=== PATIENT | female | born 1990 | race Caucasian/White ===

== ENCOUNTER → 2016-08-28 | Outpatient (CLI) | payer OTHER ==
[~2016-08-28] MED LIST: ONDA4TAB10 SL
== END | disposition home or self-care (01) ==
LOC: C.PAPS 13:42
PROVIDERS: ATTEND Obstetrics & Gynecology
DX: Z12.4 Encounter for screening for malignant neoplasm of cervix (principal)

== ENCOUNTER 2022-02-02 07:49 | Inpatient (IN) ==
[2022-02-02] MEDS ORDERED: OXYTOCIN 30 UNITS/500 ML BAG IV PRN ×2 (07:54)
--- NOTE | 2022-02-02 08:04 | History & Physical Report ---
Date of Service February 02, 2022 Assessment & Plan (1) Club foot of fetus affecting antepartum care of mother: (2) Encounter for supervision of normal intrauterine in primigravida, antepartum: (3) Term : Plan: 31yo at 40w4d GA. presents for late term IOL. 1. Fetus: Cat 1 2. Labor: Farley in place. Will start oxytocin and AROM when appropriate 3. GBS negative 4. Vitals: Normal Admission and Anticipated Discharge Date Admission Date: February 02, 2022 History of Present Illness Primary Care Provider: DAVIN Winslow 31yo at 40w4d GA. presents for late term IOL. complicated by: Left Club Foot -MFM referral (10/12/21 ) --confirms club foot, offered genetic testing/declined --rec echo- Normal --32 wks growth u/s ( to be done at [facility])- EFW 49% Rh Negative Rhogam given 11/10/21 - [place] [facility] Labs: Blood Type O Negative 06/28/21 Antibody Screen NEGATIVE 11/10/21 Hemoglobin 11.1 g/dL (12.0-16.0) L 11/10/21 Hematocrit 31.9 % (37-47) L 11/10/21 Mean Corpuscular Volume 89.5 fL (80-100) 06/28/21 Platelet Count 300 K/uL (130-400) 06/28/21 F Rubella IgG Antibody Immune (Immune) 06/28/21 Rapid Plasma Reagin Nonreactive (Nonreactive) 06/28/21 Hepatitis B Surface Antigen Neg (Neg) 06/28/21 Hepatitis C Antibody Neg (Neg) 06/28/21 HIV (1&2) Ab and P24 Ag, 4th Gener Neg (Neg) 06/28/21 Glucose 1 Hour 50 gm Load 149 mg/dl (70-130) H 11/10/21 OB Optional Labs: Chlamydia trachomatis RNA NOT DETECTED (NOT DETECTED) 06/28/21 Neisseria gonorrhoeae RNA NOT DETECTED (NOT DETECTED) 06/28/21 Labs Reviewed: Quad screen-negative--mln Allergies Allergy/AdvReac Type Severity Reaction Status Date / Time No Known Allergies Allergy Mild Verified 02/01/22 09:11 Home Medications Medication Instructions Recorded Confirmed Type ondansetron 4 mg disintegrating 4 mg PO Q4H #20 tab 08/17/21 02/02/22 Rx tablet Pre-[place] Multivitamins/Minerals 1 pill PO 02/02/22 History Patient History Medical History (Updated 02/02/22 @ 08:35 by Dontae Woods MD) Cervicalgia Club foot of fetus affecting antepartum care of mother Personal history of urinary tract infection Skin rash Varicella vaccination Surgical History (Updated 06/19/21 @ 11:19 by Misa Parker, RN) H/O wisdom tooth extraction No history of previous surgery Family History Father Myocardial infarction Denies family history of Ovarian cancer Prostate cancer Breast cancer Colorectal cancer Social History (Updated 06/19/21 @ 11:09 by Misa Parker RN) Smoking Status: Never smoker Second Hand Exposure: No; Hx Alcohol Use: No Hx Substance Use: No Preferred Language: Bermudian Communication Ability: Effective Visual Impairment: No Limitations Hearing Ability: Normal Brick Paver Required: No Beliefs That Will Affect Care: None marital status: marital status details: Anson Hernandez (32) [phone] Current Living Situation: Spouse Current Living Situation Comment: 2 dogs current occupational status: employed current occupation: [employer] Other Information That Helps Us Care for You: No Feels Safe at Home: Yes Safety Concerns: Feels Safe At This Time caffeine: Yes Dental Care, Regularly: Yes Physical Activity Frequency: 3-4 Times per Week Seatbelt Use: always Sunscreen Use: Yes Assistive Devices: None Physical Exam Genitourinary: normal external appearance Cervical Farley in place from last night. Coding Level of Care Code None Diagnoses Club foot of fetus affecting antepartum care of mother O35.8XX0 Encounter for supervision of normal intrauterine in primigravida, antepartum Z34.00 Term Z34.90
[2022-02-02 08:32] LABS: Hemoglobin 11.6 g/dl (12.0-16.0); Mean Corpuscular Hemoglobin 30.8 pg (25.0-34.0); Mean Corpuscular Hgb Conc 34.1 g/dL (32.0-36.0); Mean Corpuscular Volume 90.2 fL (80.0-100.0); Mean Platelet Volume 12.8 fL (9.4-12.3); Platelet Count 153 K/uL (130-400); RDW Coefficient of Variation 13.2 % (11.5-14.5); RDW Standard Deviation 43.6 fL (36.4-46.3); Red Blood Count 3.77 M/uL (3.93-5.22)
[2022-02-02] MEDS: LACTATED RINGER'S 1,000 ML IV PRN ×3 (08:49→18:35)
--- NOTE | 2022-02-02 12:16 | Labor Progress Brief Note ---
Date of Service February 02, 2022 Subjective Tolerating contractions. Assessment & Plan (1) Encounter for induction of labor: Plan: Pitocin, AROM with exam, now interested in epidural. Admission and Anticipated Discharge Date Admission Date: February 02, 2022 Physical Exam Genitourinary: Farley removed with a gentle tug. 5/50/-2 ROM occurred with touch of membranes during exam FHT Cat 1 [place] q2-3m Pit @ 11 Results & Data ([facility]) Vital Signs (Past 12 Hours) Vital Signs Temp Pulse Resp BP 02/02/22 12:07 86 133/80 02/02/22 12:06 97.9 F 18 02/02/22 11:08 79 111/69 02/02/22 10:05 80 118/63 02/02/22 07:58 97.9 F 78 18 123/71 Coding Level of Care Code None Diagnoses Encounter for induction of labor Z34.90
[2022-02-02] MEDS ORDERED: SODIUM CHLORIDE 0.9% INJ 10 ML VIAL ONE (12:36)
[2022-02-02] MEDS ORDERED: fentaNYL citrate 100 MCG/2 ML VIAL ONE (12:36)
[2022-02-02] MEDS ORDERED: ePHEDrine sulfate 50 MG/ML AMP ONE (12:36)
[2022-02-02] MEDS ORDERED: LIDOCAINE 2%/EPINEPHRINE 1:200,000 20 ML SDV ONE (12:37)
[2022-02-02] MEDS ORDERED: BUPIVACAINE 0.25% 30 ML VIAL ONE (12:37)
[2022-02-02] MEDS ORDERED: fentaNYL 2MCG/ML ROPIVACAINE 1.25MG/ML 100 ML BAG EPI ONE (12:37)
[2022-02-02] MEDS ORDERED: NALOXONE HCL 1 MG in SODIUM CHLORIDE 0.9% 1000ML 1,000 ML IV PRN (13:19)
[2022-02-02] MEDS ORDERED: NALBUPHINE HCL INJ 10 MG/ML AMP IV PRN (13:19)
[2022-02-02] MEDS ORDERED: fentaNYL 2MCG/ML ROPIVACAINE 1.25MG/ML 100 ML BAG EPI PRN (13:19)
[2022-02-02] MEDS ORDERED: NALOXONE HCL 0.4 MG/1 ML VIAL/CARP IV PRN (13:19)
[2022-02-02] MEDS ORDERED: diphenhydrAMINE 50 MG/ML VIAL IV PRN (13:19)
[2022-02-02] MEDS ORDERED: ePHEDrine sulfate 50 MG/ML AMP IV PRN (13:19)
[2022-02-02] MEDS ORDERED: PROMETHAZINE HCL 6.25 MG in SODIUM CHLORIDE 0.9% 50 ML IV PRN (13:19)
[2022-02-02] MEDS ORDERED: ONDANSETRON INJ 2 MG/ML 2 ML VIAL IV PRN (13:19)
--- NOTE | 2022-02-02 13:19 | Anesthesiology Consultation ---
Date of Service February 02, 2022 Assessment & Plan Chart Review Chart Review: Patient NOT seen in Pre Admission Testing and Acceptable Risk for Labor Epidural Consults Requested none ASA ASA2 Proposed Anesthesia Anesthesia Type: Labor Epidural Risk / Benefits Reviewed With: PT / POA / Parent / Guardian, Accepts Plan and Informed Consent Obtained History Height/Weight Height: 5 ft 8 in Weight: 100.97 kg Allergies Allergy/AdvReac Type Severity Reaction Status Date / Time No Known Allergies Allergy Mild Verified 02/01/22 09:11 Medications Home Medications Medication Instructions Recorded Confirmed Last Taken ondansetron 4 mg disintegrating 4 mg PO Q4H #20 tab 08/17/21 02/02/22 11/25/21 12:00 tablet prenat.vits,kiera,loj-fiep-prywg 1 tab PO HS 02/02/22 02/02/22 02/01/22 21:00 Active Medications Generic Name Dose Route Start Last Admin Trade Name Freq PRN Reason Stop Dose Admin Oxytocin 30 units in 500 mls @ 11 mls/hr 02/02/22 07:54 02/02/22 11:35 Pitocin IV 02/04/22 07:53 0.66 units/hr .Q24H PRN 11 mls/hr Labor Induction/Augmentation Titration Protocol 0.66 UNITS/HR Lactated Ringer's 1,000 mls @ 125 mls/hr 02/02/22 07:54 02/02/22 12:49 Lr IV 02/04/22 07:53 999 mls/hr .Q8H PRN Administration L&D Protocol Protocol Past Medical History Medical History (Updated 02/02/22 @ 12:15 by Sindy Burkett MD) Cervicalgia Club foot of fetus affecting antepartum care of mother Personal history of urinary tract infection Skin rash Varicella vaccination Exercise / Class Metabolic Activity II 4-5 Yardwork/Stairs/Walk up hill Past Family History Family History Father Myocardial infarction Denies family history of Ovarian cancer Prostate cancer Breast cancer Colorectal cancer Past Surgical History Surgical History (Updated 06/19/21 @ 11:19 by Misa Parker RN) H/O wisdom tooth extraction No history of previous surgery Past Anesthesia History No Hx of Anesthesia Complications and No Family Hx of Anesthesia Complications History of PONV No Hx of PONV and No Hx of Motion Sickness Social History Smoking Status: Never smoker Hx Alcohol Use: No Hx Substance Use: No substance use type: does not use Physical Exam Vital Signs Last Vital Signs Temp 36.6 C 02/02/22 12:06 Pulse 89 02/02/22 13:18 Resp 18 02/02/22 12:06 BP 119/61 02/02/22 13:18 Pulse Ox 99 02/02/22 13:14 ENMT Mouth: no dentition abnormality Thyromental Distance: > or= 3.5 Finger Breadths Mallampati Class: II Neck normal visual inspection Respiratory normal respiratory effort Auscultation: lungs clear to auscultation bilaterally Cardiovascular Rate/Rhythm: regular rate and regular rhythm Psychiatric Orientation: alert Testing Laboratory Results 02/02/22 08:18
[2022-02-02] MEDS ORDERED: CALCIUM CARBONATE 500 MG CHEWABLE TAB PO PRN (15:31)
--- NOTE | 2022-02-02 18:07 | Labor Progress Brief Note ---
Date of Service February 02, 2022 Subjective Comfortable with contractions Assessment & Plan (1) Encounter for induction of labor: Plan: Will raise max pitocin dose to allow titration, hoping to bring ctx closer together; labor has progressed, anticipate Admission and Anticipated Discharge Date Admission Date: February 02, 2022 Physical Exam Genitourinary: /1 bloody show FHT Cat 1 [place] Q2-6 irregular Pit @ 19 Results & Data ([facility]) Vital Signs (Past 12 Hours) Vital Signs Temp Pulse Resp BP Pulse Ox 02/02/22 18:04 90 100 02/02/22 17:59 95 H 100 02/02/22 17:56 98.2 F 02/02/22 17:54 98 H 99 02/02/22 17:50 78 102/55 L 02/02/22 17:49 90 100 02/02/22 17:44 80 100 02/02/22 17:39 80 100 02/02/22 17:36 79 97/51 L 02/02/22 17:34 83 100 02/02/22 17:29 79 100 02/02/22 17:24 82 100 02/02/22 17:19 94 H 99 02/02/22 17:14 98 H 100 02/02/22 17:09 84 100 02/02/22 17:07 86 105/63 02/02/22 17:04 85 100 02/02/22 16:59 85 100 02/02/22 16:54 80 100 02/02/22 16:51 85 108/58 L 02/02/22 16:49 84 98 02/02/22 16:44 80 98 02/02/22 16:39 85 99 02/02/22 16:37 78 117/62 02/02/22 16:34 91 H 99 02/02/22 16:32 98.2 F 02/02/22 16:29 86 99 02/02/22 16:24 87 100 02/02/22 16:20 85 115/57 L 02/02/22 16:19 92 H 99 02/02/22 16:14 92 H 100 02/02/22 16:09 90 99 02/02/22 16:07 80 114/58 L 02/02/22 16:04 99 H 100 02/02/22 16:00 18 02/02/22 15:59 97 H 99 02/02/22 15:54 85 99 02/02/22 15:50 81 111/61 02/02/22 15:49 85 97 02/02/22 15:44 86 100 02/02/22 15:39 88 99 02/02/22 15:35 79 115/61 02/02/22 15:34 88 98 02/02/22 15:30 18 02/02/22 15:29 82 100 02/02/22 15:24 81 98 02/02/22 15:21 104 H 121/66 02/02/22 15:19 92 H 99 02/02/22 15:14 84 98 02/02/22 15:09 85 98 02/02/22 15:06 86 119/69 02/02/22 15:04 85 99 02/02/22 14:59 88 99 02/02/22 14:54 81 99 02/02/22 14:50 81 110/69 02/02/22 14:49 84 99 02/02/22 14:46 97.9 F 18 02/02/22 14:44 88 99 02/02/22 14:39 91 H 100 02/02/22 14:37 91 H 105/64 02/02/22 14:34 82 100 02/02/22 14:30 18 02/02/22 14:29 87 100 02/02/22 14:24 85 99 02/02/22 14:21 83 107/56 L 02/02/22 14:19 80 100 02/02/22 14:14 90 99 02/02/22 14:09 88 100 02/02/22 14:06 85 90/54 L 02/02/22 14:04 92 H 98 02/02/22 14:00 18 02/02/22 13:59 90 100 02/02/22 13:54 89 100 02/02/22 13:50 81 120/63 02/02/22 13:49 84 100 02/02/22 13:44 92 H 100 02/02/22 13:39 80 100 02/02/22 13:34 88 126/66 100 02/02/22 13:30 18 02/02/22 13:29 89 128/65 99 02/02/22 13:24 82 123/61 100 02/02/22 13:19 89 126/68 100 02/02/22 13:18 89 119/61 02/02/22 13:16 107 H 128/70 02/02/22 13:14 97 H 129/72 99 02/02/22 13:12 97 H 132/79 91 02/02/22 13:09 102 H 100 02/02/22 13:04 99 H 100 02/02/22 13:00 85 133/79 02/02/22 12:07 86 133/80 02/02/22 12:06 97.9 F 18 02/02/22 11:08 79 111/69 02/02/22 10:05 80 118/63 02/02/22 07:58 97.9 F 78 18 123/71 Coding Level of Care Code None Diagnoses Encounter for induction of labor Z34.90
[2022-02-02] MEDS ORDERED: ERYTHROMYCIN OP OINT 1 GM PKT ONE (20:14)
--- NOTE | 2022-02-02 21:45 | Delivery Summary ---
Vaginal Delivery Summary Date of Service February 02, 2022 Vaginal Delivery Summary DIAGNOSES: 1. Russo intrauterine at 40w4d gestation. 2. Induction of Labor. 3. Group B Streptococcus Neg 4. Club foot of infant. PROCEDURE: Spontaneous vaginal delivery and repair of first degree laceration. SURGEON: Sindy Burkett MD. DENTAL TECH: None. ESTIMATED BLOOD LOSS: 250 mL. COMPLICATIONS: None. PLACENTA: Spontaneous and intact with a 3-vessel cord. DISPOSITION: Stable to labor and delivery. DESCRIPTION: The patient pushed well and brought the head to in OA position. The 's head was allowed to deliver with contraction force and no further active pushing, with the perineum protected during this time. There was no nuchal cord. The right shoulder was anterior and a hand presented compound alongside the neck. The shoulders and body delivered without any difficulty, and the infant was placed on the maternal abdomen. It was vigorous and moving all extremities, and making respiratory efforts. The cord was doubly clamped by the MD and then cut by the FOB. The placenta delivered spontaneously and was noted to be intact and with a 3VC, although the cord was noted to appear to insert into membranes / velamentous insertion. The cervix, vagina and perineum were examined and were found to have a first degree perineal lac which was repaired in the usual manner with vicryl suture. The fundus was firm and lochia minimal immediately after delivery. [facility] Vaginal Delivery Charge Vaginal Delivery Codes: 32020 global code for the antepartum, delivery, and pos t-
[2022-02-02] MEDS ORDERED: HYDROCORTISONE ACETATE 25 MG SUPP PR PRN (22:33)
[2022-02-02] MEDS ORDERED: DIPHTHERIA/TETANUS/PERTUSSIS 0.5 ML SYR/VIAL IM ONE (22:33)
[2022-02-02] MEDS ORDERED: BENZOCAINE 20% AER SPR 82.5 GM CAN EXT PRN (22:33)
[2022-02-02] MEDS ORDERED: ACETAMINOPHEN 325 MG TAB PO PRN (22:33)
--- NOTE | 2022-02-02 23:48 | Anesthesia Procedure Note ---
Date of Service February 02, 2022 Anesthesia Post Epidural Note Vital Signs Vital Signs: Temp Pulse Resp BP Pulse Ox 36.9 C 100 H 18 97/47 L 96 02/02/22 20:57 02/02/22 23:46 02/02/22 20:57 02/02/22 23:46 02/02/22 21:30 Pain Intensity Perineal: Pain Intensity: 6 Notes Mental Status: alert / awake / arousable Nausea / Vomiting: adequately controlled Pain: adequately controlled Airway Patency, RR, SpO2: stable & adequate BP & HR: stable & adequate Hydration State: stable & adequate Neuraxial Anesthesia: was administered and sensory block is resolving Anesthetic Complications: no major complications apparent and Pt Satisfied with anesthetic care Epidural: Removed without complications and With tip intact
[2022-02-02] MEDS: IBUPROFEN 600 MG TAB PO PRN (23:50)
[2022-02-03 06:49] LABS: Hematocrit (blood only) 30.2 % (34.1-44.9); Hemoglobin 10.2 g/dl (12.0-16.0); Mean Corpuscular Hemoglobin 30.3 pg (25.0-34.0); Mean Corpuscular Hgb Conc 33.8 g/dL (32.0-36.0); Mean Corpuscular Volume 89.6 fL (80.0-100.0); Mean Platelet Volume 12.5 fL (9.4-12.3); Platelet Count 148 K/uL (130-400); RDW Coefficient of Variation 13.4 % (11.5-14.5); RDW Standard Deviation 43.8 fL (36.4-46.3); Red Blood Count 3.37 M/uL (3.93-5.22); White Blood Count 19.73 K/ul (4.8-10.8)
--- NOTE | 2022-02-03 07:09 | Obstetrical Progress Note ---
Date of Service February 03, 2022 Assessment & Plan (1) state: Recovering well PPD#1. Anticipate d/c tomorrow. Subjective Ambulation: ambulating normally Voiding: no voiding problems Passing Gas:: Yes Diet Tolerance:: regular diet Lochia:: Small Feeding Type:: breast feeding Physical Exam Constitutional WD/WN, vitals as above Eyes PERRL, conjunctivae normal, anicteric sclerae Neck normal visual inspection Respiratory normal respiratory effort and able to speak in complete sentences; no respiratory distress and no labored breathing Cardiovascular Rate/Rhythm: regular rate and regular rhythm Extremities: no edema Chest (Breasts) Chest: normal inspection of chest Gastrointestinal (Abdomen) Inspection/Auscultation: abdomen normal to inspection Soft, postgravid Psychiatric A+Ox3, euthymic affect Genitourinary OB Exam Abdomen: + fundal height Fundus: + firm and + relation to umbilicus (fundus just below umbilicus); not tender Results & Data ([facility]) Vital Signs (Past 12 Hours) Vital Signs Temp Pulse Pulse Resp BP BP Pulse Ox 02/03/22 04:45 97.9 F 80 16 127/66 02/03/22 01:15 98.2 F 88 16 115/70 02/02/22 23:46 100 H 97/47 L 02/02/22 23:30 90 127/59 L 02/02/22 23:15 85 121/55 L 02/02/22 23:00 90 122/56 L 02/02/22 22:45 80 130/59 L 02/02/22 22:30 86 121/58 L 02/02/22 22:15 125 H 122/55 L 02/02/22 22:00 81 130/59 L 02/02/22 21:45 98 H 120/58 L 02/02/22 21:36 100 H 126/58 L 02/02/22 21:30 104 H 96 02/02/22 21:25 118 H 97 02/02/22 21:21 112 H 84 L 02/02/22 21:20 111 H 97 02/02/22 21:15 157 H 88 L 02/02/22 21:14 108 H 97 02/02/22 21:09 112 H 98 02/02/22 21:06 106 H 129/61 02/02/22 21:05 129 H 93 02/02/22 21:04 95 H 97 02/02/22 20:59 105 H 98 02/02/22 20:58 118 H 91 02/02/22 20:57 98.4 F 18 02/02/22 20:54 112 H 98 02/02/22 20:51 88 136/77 02/02/22 20:49 100 H 97 02/02/22 20:48 101 H 94 02/02/22 20:44 101 H 96 02/02/22 20:39 91 H 97 02/02/22 20:38 96 H 89 L 02/02/22 20:36 96 H 97/52 L 02/02/22 20:34 85 97 02/02/22 20:29 100 H 98 02/02/22 20:24 88 98 02/02/22 20:19 87 99 02/02/22 20:14 92 H 99 02/02/22 20:09 83 99 02/02/22 20:06 84 98/58 L 02/02/22 20:04 84 99 02/02/22 19:59 86 99 02/02/22 19:54 81 98 02/02/22 19:52 80 91/51 L 02/02/22 19:49 77 99 02/02/22 19:44 85 99 02/02/22 19:39 92 H 99 02/02/22 19:36 104 H 115/58 L 02/02/22 19:34 93 H 96 02/02/22 19:29 85 100 02/02/22 19:24 93 H 98 02/02/22 19:22 114 H 130/89 02/02/22 19:21 86 89 L 02/02/22 19:19 87 100 02/02/22 19:14 80 100 02/02/22 19:09 81 99
[2022-02-03] MEDS: DOCUSATE SODIUM 100 MG CAP PO SCH ×2 (09:27→20:48)
[2022-02-03] MEDS: PRENATAL VITAMIN 1 TAB PO SCH (09:27)
[2022-02-03] MEDS: IBUPROFEN 600 MG TAB PO PRN ×2 (09:27→23:54)
[2022-02-04 06:33] LABS: Hematocrit (blood only) 30.2 % (34.1-44.9); Hemoglobin 10.2 g/dl (12.0-16.0)
--- NOTE | 2022-02-04 07:46 | Obstetrical Progress Note ---
Date of Service February 04, 2022 Assessment & Plan (1) state: Day 2 s/p . Doing well. Stable for discharge Subjective Ambulation: ambulating normally Voiding: no voiding problems Passing Gas:: Yes Diet Tolerance:: regular diet Lochia:: Moderate Feeding Type:: breast feeding Physical Exam Constitutional WD/WN, vitals as above Respiratory normal respiratory effort; no respiratory distress and no labored breathing Gastrointestinal (Abdomen) Inspection/Auscultation: abdomen normal to inspection; abdomen not distended Percussion/Palpation: abdomen soft; abdomen nontender, no guarding and abdomen not rigid Genitourinary OB Exam Abdomen: + fundal height Fundus: + firm and + relation to umbilicus ([place] ow); not tender or not boggy Results & Data ([facility]) Vital Signs (Past 12 Hours) Vital Signs Temp Pulse Resp BP Pulse Ox 02/03/22 23:15 36.7 C 77 18 119/75 98
[2022-02-04] MEDS: DOCUSATE SODIUM 100 MG CAP PO SCH (10:11)
[2022-02-04] MEDS: PRENATAL VITAMIN 1 TAB PO SCH (10:11)
== END 2022-02-04 12:50 | disposition home or self-care (01) | DRG 807 ==
LOC: 4S1 07:49 → 4E2 02-03 00:56

== ENCOUNTER 2023-09-12 15:40 | Inpatient (IN) ==
[2023-09-12] MEDS ORDERED: LIDOCAINE 1% LOCAL 20 ML VIAL INFIL PRN (15:42)
[2023-09-12] MEDS ORDERED: LACTATED RINGER'S 1,000 ML IV PRN (15:42)
[2023-09-12] MEDS ORDERED: NALBUPHINE HCL 5 MG in SYRINGE 0 ML IV PRN (15:43)
[2023-09-12] MEDS ORDERED: ePHEDrine sulfate 50 MG/ML AMP IV PRN (15:43)
[2023-09-12] MEDS ORDERED: NALOXONE HCL 1 MG in SODIUM CHLORIDE 0.9% 1,000 ML IV PRN (15:43)
[2023-09-12] MEDS ORDERED: BUPIVACAINE 0.25% PF 30 ML VIAL EPI PRN (15:43)
[2023-09-12] MEDS ORDERED: fentANYL 2 MCG/ML BUPIVacaine 0.125%-NSS 100ML BAG EPI PRN (15:43)
[2023-09-12] MEDS ORDERED: fentaNYL citrate PF 100 MCG/2 ML VIAL EPI PRN (15:43)
[2023-09-12] MEDS ORDERED: SODIUM CHLORIDE 0.9% PF INJ 10 ML VIAL EPI PRN (15:43)
[2023-09-12] MEDS ORDERED: NALOXONE HCL 0.4 MG/1 ML VIAL/CARP IV PRN (15:43)
[2023-09-12] MEDS ORDERED: ROPIVACAINE 0.5% PF 5 MG/ML 20 ML VIAL EPI PRN (15:43)
[2023-09-12] MEDS ORDERED: diphenhydrAMINE 50 MG/ML VIAL IV PRN (15:43)
[2023-09-12] MEDS ORDERED: LIDOCAINE 2% MPF LOCAL 5 ML VIAL EPI PRN (15:43)
--- NOTE | 2023-09-12 15:43 | Anesthesiology Consultation ---
Date of Service September 12, 2023 Assessment & Plan (1) Encounter for pre-operative examination: Chart Review Chart Review: Patient NOT seen in Pre Admission Testing and Acceptable Risk for Labor Epidural Consults Requested none History Allergies Allergy/AdvReac Type Severity Reaction Status Date / Time No Known Allergies Allergy Mild Verified 09/12/23 08:09 Medications Home Medications Medication Instructions Recorded Confirmed Last Taken prenat.vits,kiera,ukh-tylw-izepj 1 tab PO HS 02/02/22 09/12/23 09/11/23 08:00 Past Medical History Medical History Varicella vaccination Skin rash Personal history of urinary tract infection Cervicalgia Past Family History Family History Father Myocardial infarction Denies family history of Ovarian cancer Prostate cancer Breast cancer Colorectal cancer Past Surgical History Surgical History H/O wisdom tooth extraction Social History Smoking Status: Never smoker Do You Dip or Chew Tobacco: No Hx Alcohol Use: No Hx Substance Use: No substance use type: does not use
[2023-09-12] MEDS: OXYTOCIN 30 UNITS/NSS 30 UNITS/500 ML BAG IV PRN (16:00)
--- NOTE | 2023-09-12 16:07 | Delivery Summary ---
Vaginal Delivery Summary Date of Service September 12, 2023 Vaginal Delivery Summary DIAGNOSES: 1. Russo intrauterine at 39w2d gestation. 2. Spontaneous onset of labor. 3. Group B Streptococcus Neg. PROCEDURE: Spontaneous vaginal delivery and repair of 1st degree perineal laceration. SURGEON: Sindy Burkett MD. IT HELP DESK ANALYST: None. ESTIMATED BLOOD LOSS: 250 mL. COMPLICATIONS: None. PLACENTA: Spontaneous and intact with a 3-vessel cord. DISPOSITION: Stable to labor and delivery. DESCRIPTION: The patient pushed well and brought the head to in DOA position. The 's head was allowed to deliver with contraction force and no further active pushing, with the perineum protected during this time. There was no nuchal cord. The left shoulder was anterior. The shoulders and body delivered without any difficulty, and the was placed on the maternal abdomen. It was vigorous and moving all extremities, and making respiratory efforts. The cord was doubly clamped by the MD and then cut by the FOB. The placenta delivered spontaneously and was noted to be intact and with a 3VC. The cervix, vagina and perineum were examined and were found to have a small 1st degree laceration, for which repair was offered and accepted. Plain 1% lido was infiltrated and 3-0 vicryl was used to close the skin defect. The fundus was firm and lochia minimal immediately after delivery. [facility] Vaginal Delivery Charge Vaginal Delivery Codes: 23229 global code for the antepartum, delivery, and post-
[2023-09-12] MEDS ORDERED: bisacodyL 10 MG SUPP PR PRN (16:47)
[2023-09-12] MEDS ORDERED: oxyCODONE/ACETAMINOPHEN 5mg/325mg TAB PO PRN (16:47)
[2023-09-12] MEDS ORDERED: OXYTOCIN 30 UNITS/NSS 30 UNITS/500 ML BAG IV PRN (16:47)
[2023-09-12] MEDS ORDERED: HYDROCORTISONE ACETATE 25 MG SUPP PR PRN (16:47)
[2023-09-12] MEDS ORDERED: ACETAMINOPHEN 325 MG TAB PO PRN (16:47)
[2023-09-12] MEDS: IBUPROFEN 600 MG TAB PO PRN (17:12)
[2023-09-12] MEDS: BUPIVACAINE 0.25% PF 30 ML VIAL EPI STA (17:52)
[2023-09-12] MEDS: LIDOCAINE 2%/EPINEPHRINE 1:200,000 20 ML PF EPI STA (17:52)
[2023-09-12] MEDS: fentaNYL citrate PF 100 MCG/2 ML VIAL EPI STA (17:52)
[2023-09-12] MEDS: LIDOCAINE 2%/EPINEPHRINE 1:200,000 20 ML PF ONE (17:53)
[2023-09-12] MEDS: ePHEDrine sulfate 50 MG/ML AMP ONE (17:53)
[2023-09-12] MEDS: SODIUM CHLORIDE 0.9% PF INJ 10 ML VIAL ONE (17:53)
[2023-09-12] MEDS: DIPHTHER/TETAN/PERTUS Vaccine (Tdap, Adol/Adult) 0.5mL IM ONE (17:53)
[2023-09-12] MEDS: BUPIVACAINE 0.25% PF 30 ML VIAL ONE (17:53)
[2023-09-12] MEDS: fentANYL 2 MCG/ML BUPIVacaine 0.125%-NSS 100ML BAG ONE (17:53)
[2023-09-12] MEDS: SODIUM CHLORIDE 0.9% PF INJ 10 ML VIAL EPI STA (17:53)
[2023-09-12] MEDS: fentaNYL citrate PF 100 MCG/2 ML VIAL ONE (17:53)
[2023-09-12 18:14] LABS: Hematocrit (blood only) 32.8 % (37.0-47.0); Hemoglobin 11.6 g/dl (12.0-16.0); Mean Corpuscular Hemoglobin 31.2 pg (25.0-34.0); Mean Corpuscular Hgb Conc 35.4 g/dL (32.0-36.0); Mean Corpuscular Volume 88.2 fL (80.0-100.0); Mean Platelet Volume 12.5 fL (9.4-12.4); Platelet Count 161 K/uL (130-400); RDW Coefficient of Variation 12.8 % (11.5-14.5); RDW Standard Deviation 40.9 fL (36.4-46.3); Red Blood Count 3.72 M/uL (4.20-5.40); White Blood Count 13.22 K/ul (4.8-10.8)
[2023-09-12] MEDS: BENZOCAINE 20% SPRY 85 APPLN/85 GM CAN EXT PRN (19:14)
[2023-09-12] MEDS: DOCUSATE SODIUM 100 MG CAP PO SCH (20:29)
--- NOTE | 2023-09-13 05:49 | Obstetrical Progress Note ---
Date of Service September 13, 2023 Assessment & Plan (1) Encounter for care after hospital delivery: Plan: Encourage ambulation Continue ibuprofen for pain management d/c to home, instructions reviewed Rh- rhogam ordered Rubella immune follow up in office in 6 weeks Admission and Anticipated Discharge Date Admission Date: September 12, 2023 Supervising Physician Co-Signing Physician Notes Resident Physician Supervision Note: I interviewed and examined the patient. Discussed with Dr. Mendes and agree with findings and plan as documented in the note. Any exceptions or clarifications are listed here: [ ] Documented By: Sindy Burkett MD, FACOG Subjective 33yo PP day 1 after 09/12 at 39w2d Rubella immune ambulating well pain well controlled has voided, no gas or bm PO intake without issue, well, Lochia improving Vitals stable Hgb reviewed No fever, chills, nausea, vomiting, headache or shortness of breath Review of Systems Review of Systems: as per hpi Physical Exam Constitutional: Well appearing in no acute distress Results & Data Vital Signs (Past 12 Hours) Vital Signs Temp Pulse Pulse Resp BP BP Pulse Ox 09/13/23 03:10 36.7 C 80 18 119/70 97 09/12/23 23:15 36.6 C 69 18 129/76 98 09/12/23 20:00 36.7 C 86 18 124/75 98 09/12/23 18:05 77 118/56 L 09/12/23 17:50 79 119/58 L O2 Del Method 09/13/23 03:10 Room Air 09/12/23 23:15 Room Air 09/12/23 20:00 Room Air 09/12/23 18:05 09/12/23 17:50 Resident Activity Tracking Resident Involvement: Resident Care Provided Care Provided: OB Delivery
[2023-09-13 07:12] LABS: Hematocrit (blood only) 32.7 % (37.0-47.0); Hemoglobin 11.1 g/dl (12.0-16.0); Mean Corpuscular Hemoglobin 30.3 pg (25.0-34.0); Mean Corpuscular Hgb Conc 33.9 g/dL (32.0-36.0); Mean Corpuscular Volume 89.3 fL (80.0-100.0); Mean Platelet Volume 12.4 fL (9.4-12.4); Platelet Count 171 K/uL (130-400); RDW Standard Deviation 42.1 fL (36.4-46.3); Red Blood Count 3.66 M/uL (4.20-5.40); White Blood Count 11.17 K/ul (4.8-10.8)
[2023-09-13] MEDS: PRENATAL VITAMIN 1 TAB PO SCH (09:05)
[2023-09-13] MEDS ORDERED: bisacodyL 5 MG TABEC PO SCH (20:00)
== END 2023-09-13 18:09 | disposition home or self-care (01) | DRG 807 ==
LOC: OPB 15:40 → 4S1 15:41 → 4E2 19:34
DX: Z67.91 Unspecified blood type, Rh negative; O70.0 First degree perineal laceration during delivery; Z37.0 Single live birth; Z3A.39 39 weeks gestation of pregnancy; Z79.899 Other long term (current) drug therapy